=== PATIENT | male | born 1985 | race Two or more races ===

== ENCOUNTER 2020-11-04 17:55 | Emergency (ER) | payer OTHER ==
[~2020-11-04] VITALS: Ht 177.8 cm; Wt 90.7 kg
[2020-11-05] MEDS ORDERED: PROTONIX20 MG PO (00:53)
[2020-11-05] MEDS ORDERED: LEVSIN0.125 MG PO (00:53)
[2020-11-05] MEDS ORDERED: PEPCID AC20 MG PO (00:53)
[2020-11-05] MEDS ORDERED: ACETAMINOPHEN650 M2 PO (00:53)
== END 2020-11-05 01:03 | disposition home or self-care (01) ==
LOC: ER 17:55
DX: R11.2 Nausea with vomiting, unspecified (principal); R10.9 Unspecified abdominal pain